=== PATIENT | female | born 1960 | race African-American/Black ===

== ENCOUNTER 2021-11-30 17:22 | Emergency (ER) | payer MEDICAID, MEDICARE ==
[~2021-11-30] VITALS: Ht 162.6 cm; Wt 79.0 kg
[2021-11-30] MEDS ORDERED: HYDR1CRE30 TOP (17:55)
[2021-11-30] MEDS ORDERED: ONDA-83 PO (17:55)
[2021-11-30] MEDS ORDERED: METO10TA2 PO (17:55)
[2021-11-30] MEDS ORDERED: VITA500045 PO (17:55)
[2021-11-30] MEDS ORDERED: DOCU100C16 PO (17:55)
[2021-11-30] MEDS ORDERED: METF500T13 PO (17:55)
[2021-11-30] MEDS ORDERED: FLUO5OI TOP (17:55)
[2021-11-30] MEDS ORDERED: CVS500CA5 PO (17:55)
[2021-11-30] MEDS ORDERED: CETI10CH PO (17:55)
[2021-11-30] MEDS ORDERED: DULO1CAP6 PO (17:55)
[2021-11-30] MEDS ORDERED: FAMO20TA PO (17:55)
[2021-11-30] MEDS ORDERED: PANT-23 PO (17:56)
[2021-11-30] MEDS ORDERED: GABA-283 PO (17:56)
[2021-11-30] MEDS ORDERED: ATOR1TAB21 PO (17:58)
[2021-11-30] MEDS ORDERED: LOSA50TA28 PO (17:58)
[2021-11-30 19:45] LABS: APPEARANCE, URINE HAZY (CLEAR); BACTERIA, URINE AUTO 1+ (NEGATIVE); BILIRUBIN, URINE AUTO NEGATIVE (NEGATIVE); BLOOD, URINE BLOOD 3+ (NEGATIVE); COLOR, URINE YELLOW (YELLOW); GLUCOSE, URINE (UA) AUTO 3+ mg/dL (NEGATIVE); KETONE, URINE AUTO NEGATIVE (NEGATIVE); LEUKOCYTE ESTERASE, URINE AUTO 3+ (NEGATIVE); MUCUS, URINE SMALL (NEGATIVE); NITRITE, URINE AUTO NEGATIVE (NEGATIVE); PROTEIN, URINE AUTO 1+ mg/dL (NEGATIVE); RBC, URINE AUTO 6 /HPF (0-3); SPECIFIC GRAVITY URINE AUTO 1.005 (1.002-1.035); SQUAMOUS EPITHELIAL CELL UR AU 4 /HPF (0-6); UROBILINOGEN, URINE AUTO 0.2 mg/dL (0.0-2.0); WBC, URINE AUTO TNTC /HPF (0-3)
[2021-11-30 19:55] LABS: BASO % 0.3 % (0.0-1.0); EOS # 0.2 10^3/uL (0.0-0.5); EOS % 1.7 % (0.0-3.0); HEMATOCRIT 41.5 % (36.0-47.0); HEMOGLOBIN 13.8 g/dl (12.0-15.5); LYMPH # 2.8 10^3/uL (1.5-5.0); LYMPH % 21.6 % (24.0-44.0); MEAN CORPUSCULAR HEMOGLOBIN 30.3 pg (27.0-33.0); MEAN CORPUSCULAR HGB CONC 33.3 g/dl (32.0-36.5); MEAN CORPUSCULAR VOLUME 91.2 fl (80.0-96.0); MONO # 0.9 10^3/uL (0.0-0.8); MONO % 6.9 % (2.0-8.0); NEUTROPHILS # 9.1 10^3/uL (1.5-8.5); NEUTROPHILS % 69.1 % (36.0-66.0); PLATELET COUNT, AUTOMATED 309 10^3/uL (150-450); RED BLOOD COUNT 4.55 10^6/uL (4.00-5.40); WHITE BLOOD COUNT 13.1 10^3/uL (4.0-10.0)
[2021-11-30 20:44] LABS: ALT/SGPT 60 U/L (12-78); BILIRUBIN,DIRECT < 0.1 MG/DL (0.0-0.2); BILIRUBIN,TOTAL 0.3 MG/DL (0.2-1.0); BLOOD UREA NITROGEN 13 MG/DL (7-18); CALCIUM LEVEL 10.5 MG/DL (8.5-10.1); CARBON DIOXIDE LEVEL 30 MEQ/L (21-32); CHLORIDE LEVEL 104 MEQ/L (98-107); CREATININE FOR GFR 1.08 MG/DL (0.55-1.30); GLOMERULAR FILTRATION RATE > 60.0 (>51); GLUCOSE, FASTING 116 MG/DL (70-100); LIPASE 368 U/L (73-393); POTASSIUM SERUM 4.4 MEQ/L (3.5-5.1); SODIUM LEVEL 140 MEQ/L (136-145); TOTAL PROTEIN 7.9 GM/DL (6.4-8.2)
[2021-11-30] MEDS ORDERED: CEPH500C PO (20:46)
[2021-11-30] MEDS ORDERED: CEPHALEXIN 500 MG CAP PO ONE (20:50)
[2021-11-30 20:56] VITALS: BP 132/67
== END 2021-11-30 21:03 | disposition home or self-care (01) ==
LOC: M ED 17:22
DX: N30.00 Acute cystitis without hematuria (principal); E11.9 Type 2 diabetes mellitus without complications; I12.9 Hypertensive chronic kidney disease with stage 1 through stage 4 chronic kidney disease, or unspecified chronic kidney disease; E78.5 Hyperlipidemia, unspecified; G89.29 Other chronic pain; M54.50 Low back pain, unspecified; K31.84 Gastroparesis; Z91.041 Radiographic dye allergy status; Z79.899 Other long term (current) drug therapy; Z79.84 Long term (current) use of oral hypoglycemic drugs

== ENCOUNTER → 2022-02-02 | Outpatient (CLI) | payer MEDICARE ==
[~2022-02-02] MED LIST: ALEV220T22 PO; ATOR1TAB21 PO; CEPH500C PO; CETI10CH PO; CVS500CA5 PO; DOCU100C16 PO; DULO1CAP6 PO; FAMO20TA PO; FLUO-215 TOP; GABA-282 PO; GABA-283 PO; HUMU70IN SC; HYDR1CRE30 TOP; JARD1TAB PO; LANTINJ4 SC; LOSA50TA28 PO; MAGN400T33 PO; METF500T13 PO; METO10TA2 PO; MICO45CR VA; MIRA3350 PO; ONDA-83 PO; PANT-23 PO; TRUL0.5I SC; VITA500045 PO
== END ==
LOC: M LABSMTC 11:17
PROVIDERS: ATTEND Anesthesiology
DX: Z01.812 Encounter for preprocedural laboratory examination (principal)

== ENCOUNTER → 2022-02-04 | Outpatient (CLI) | payer MEDICARE | LOC: M RAD 11:28 | PROVIDERS: ATTEND Family Medicine Addiction Medicine | DX: M54.59 Other low back pain (principal) ==

== ENCOUNTER 2022-02-07 06:52 | Day surgery (SDC) | payer MEDICARE ==
[~2022-02-07] VITALS: Ht 162.6 cm; Wt 78.0 kg
[~2022-02-07 06:52] MED LIST changes: +NS 1,000 ML IV ONE
[2022-02-07] MEDS ORDERED: LIDOCAINE 2% 100MG/5ML SDV (FOR ANES.) As Ordered ONE (07:11)
[2022-02-07] MEDS ORDERED: propofoL 200 MG/20 ML VIAL As Ordered ONE ×2 (07:11→09:08)
[2022-02-07] MEDS ORDERED: fentaNYL 100 MCG/2 ML INJECTION As Ordered ONE (07:12)
[2022-02-07 09:19] VITALS: BP 132/74
== END 2022-02-07 09:32 | disposition home or self-care (01) ==
LOC: M OPP 06:52
PROVIDERS: ATTEND Internal Medicine Gastroenterology
DX: Z86.010 Personal history of colon polyps (principal); K63.5 Polyp of colon; K64.8 Other hemorrhoids; K31.84 Gastroparesis; R12 Heartburn; Z79.1 Long term (current) use of non-steroidal anti-inflammatories (NSAID); Z79.02 Long term (current) use of antithrombotics/antiplatelets; Z79.84 Long term (current) use of oral hypoglycemic drugs; Z79.891 Long term (current) use of opiate analgesic; Z79.899 Other long term (current) drug therapy; Z88.1 Allergy status to other antibiotic agents; Z91.041 Radiographic dye allergy status; Z91.048 Other nonmedicinal substance allergy status; Z80.1 Family history of malignant neoplasm of trachea, bronchus and lung; Z80.3 Family history of malignant neoplasm of breast
CPT/HCPCS: 43235; 45385; 88305; J3010

== ENCOUNTER → 2022-03-04 | Outpatient (CLI) | payer MEDICARE, MEDICAID ==
[~2022-03-04] MED LIST changes: -NS 1,000 ML IV ONE
[2022-03-04 16:29] LABS: ALBUMIN 3.5 GM/DL (3.2-5.2); BILIRUBIN,TOTAL 0.4 MG/DL (0.2-1.0); CALCIUM LEVEL 9.8 MG/DL (8.5-10.1); CREATININE FOR GFR 1.19 MG/DL (0.55-1.30); GLOMERULAR FILTRATION RATE 59.9 (>51); POTASSIUM SERUM 4.3 MEQ/L (3.5-5.1); TOTAL PROTEIN 7.2 GM/DL (6.4-8.2)
[2022-03-04 16:29] LABS: BASO % 0.4 % (0.0-1.0); EOS # 0.3 10^3/uL (0.0-0.5); EOS % 3.6 % (0.0-3.0); HEMATOCRIT 42.2 % (36.0-47.0); HEMOGLOBIN 13.5 g/dl (12.0-15.5); LYMPH # 3.2 10^3/uL (1.5-5.0); LYMPH % 36.1 % (24.0-44.0); MEAN CORPUSCULAR HEMOGLOBIN 29.2 pg (27.0-33.0); MEAN CORPUSCULAR VOLUME 91.3 fl (80.0-96.0); MONO # 0.9 10^3/uL (0.0-0.8); MONO % 10.2 % (2.0-8.0); NEUTROPHILS # 4.4 10^3/uL (1.5-8.5); NEUTROPHILS % 49.3 % (36.0-66.0); PLATELET COUNT, AUTOMATED 334 10^3/uL (150-450); RED BLOOD COUNT 4.62 10^6/uL (4.00-5.40); WHITE BLOOD COUNT 8.9 10^3/uL (4.0-10.0)
== END ==
LOC: M LAB 15:06
PROVIDERS: ATTEND Physician Assistant Medical
DX: R10.10 Upper abdominal pain, unspecified (principal)

== ENCOUNTER → 2022-03-15 | Outpatient (CLI) | payer MEDICARE, MEDICAID | LOC: M PLAIMG 13:01 | PROVIDERS: ATTEND Family Medicine Addiction Medicine | DX: M54.50 Low back pain, unspecified (principal) ==

== ENCOUNTER → 2022-03-18 | Outpatient (CLI) | payer MEDICARE, MEDICAID | LOC: M RAD 07:06 | PROVIDERS: ATTEND Physician Assistant Medical | DX: K76.0 Fatty (change of) liver, not elsewhere classified (principal); K80.20 Calculus of gallbladder without cholecystitis without obstruction; R68.81 Early satiety ==

== ENCOUNTER 2022-04-26 12:30 | Outpatient (RCR) | payer MEDICARE, MEDICAID | END 2022-04-27 | LOC: M PT 12:30 | PROVIDERS: ATTEND Family Medicine Addiction Medicine | DX: M53.3 Sacrococcygeal disorders, not elsewhere classified (principal) ==

== ENCOUNTER → 2022-05-10 | Outpatient (CLI) | payer MEDICARE, MEDICAID | LOC: M SOG 09:09 | PROVIDERS: ATTEND Physician Assistant | DX: M25.531 Pain in right wrist (principal); M25.532 Pain in left wrist ==

== ENCOUNTER → 2022-05-20 | Outpatient (CLI) | payer MEDICARE, MEDICAID ==
[2022-05-20 12:47] LABS: ALBUMIN 3.7 GM/DL (3.2-5.2); ALT/SGPT 56 U/L (12-78); BILIRUBIN,DIRECT < 0.1 MG/DL (0.0-0.2); BILIRUBIN,TOTAL 0.3 MG/DL (0.2-1.0); TOTAL PROTEIN 7.8 GM/DL (6.4-8.2)
== END ==
LOC: M LAB 11:11
PROVIDERS: ATTEND Physician Assistant Medical
DX: R74.01 Elevation of levels of liver transaminase levels (principal)

== ENCOUNTER → 2022-05-24 | Outpatient (CLI) | payer MEDICARE, MEDICAID ==
[~2022-05-24] MED LIST changes: +ACET-907 PO; +BENA25TA5 PO; +DULO30CA9 PO; +ERGO500029 PO; +HYDR25OI TOP; +JARD1TAB3 PO; +TURM500C PO
== END ==
LOC: M EKG 08:40
PROVIDERS: ATTEND Family Medicine Addiction Medicine
DX: Z01.810 Encounter for preprocedural cardiovascular examination (principal)

== ENCOUNTER → 2022-05-25 | Outpatient (CLI) | payer MEDICARE, MEDICAID ==
[~2022-05-25] MED LIST changes: -ACET-907 PO; -BENA25TA5 PO; -DULO30CA9 PO; -ERGO500029 PO; -HYDR25OI TOP; -JARD1TAB3 PO; -TURM500C PO
== END ==
LOC: M LABSMTC 09:10
PROVIDERS: ATTEND Anesthesiology
DX: Z01.818 Encounter for other preprocedural examination (principal); Z11.52 Encounter for screening for COVID-19

== ENCOUNTER 2022-05-26 11:15 | Outpatient (RCR) | payer MEDICARE, MEDICAID ==
[2022-05-27] MEDS ORDERED: JARD1TAB3 PO (08:55)
[2022-05-27] MEDS ORDERED: ERGO500029 PO (10:12)
[2022-05-27] MEDS ORDERED: TURM500C PO (10:12)
[2022-05-27] MEDS ORDERED: DULO30CA9 PO (10:12)
[2022-05-27] MEDS ORDERED: HYDR25OI TOP (10:12)
[2022-05-27] MEDS ORDERED: BENA25TA5 PO (10:12)
[2022-05-27] MEDS ORDERED: ACET-907 PO (10:12)
[2022-05-27] MEDS ORDERED: DULO1CAP6 PO (10:12)
== END 2022-05-27 ==
LOC: M PT 11:15
PROVIDERS: ATTEND Family Medicine Addiction Medicine
DX: M53.3 Sacrococcygeal disorders, not elsewhere classified (principal)

== ENCOUNTER 2022-05-30 06:06 | Day surgery (SDC) | payer MEDICARE, MEDICAID ==
[~2022-05-30] VITALS: Ht 162.6 cm; Wt 78.8 kg
[~2022-05-30 06:06] MED LIST changes: +ACET-907 PO; +BENA25TA5 PO; +DULO30CA9 PO; +ERGO500029 PO; +HYDR25OI TOP; +JARD1TAB3 PO; +TURM500C PO
[2022-05-30] MEDS ORDERED: LR 1,000 ML IV SCH ×2 (06:35→08:25)
[2022-05-30] MEDS ORDERED: BUPIVACAINE HCL 0.25% 30ML VIAL As Ordered ONE (07:15)
[2022-05-30] MEDS ORDERED: LIDOCAINE 2% 100MG/5ML SDV (FOR ANES.) As Ordered ONE (07:20)
[2022-05-30] MEDS ORDERED: fentaNYL 100 MCG/2 ML INJECTION As Ordered ONE (07:20)
[2022-05-30] MEDS ORDERED: propofoL 200 MG/20 ML VIAL As Ordered ONE (07:20)
[2022-05-30] MEDS ORDERED: MIDAZOLAM INJ 2MG/2ML VIAL (J2250 PER 1MG) As Ordered ONE (07:20)
[2022-05-30] MEDS ORDERED: KETOROLAC 60MG 2ML VIAL As Ordered ONE (07:55)
[2022-05-30] MEDS ORDERED: dexameTHASONE 4 MG/ML 1ML VIAL (J1100 PER 1MG) As Ordered ONE (07:55)
[2022-05-30] MEDS ORDERED: METOCLOPRAMIDE INJ 10MG/2ML VIAL (J2765 PER 1) As Ordered ONE (07:55)
[2022-05-30] MEDS ORDERED: ONDANSETRON 4MG 2ML VIAL As Ordered ONE (07:55)
[2022-05-30] MEDS ORDERED: fentaNYL 100 MCG/2 ML INJECTION IV PRN (08:25)
[2022-05-30] MEDS ORDERED: oxyCODONE 5MG TAB PO PRN (08:25)
[2022-05-30] MEDS ORDERED: ONDANSETRON 4MG 2ML VIAL IV PRN (08:25)
[2022-05-30 09:28] VITALS: BP 145/76
== END 2022-05-30 10:01 | disposition home or self-care (01) ==
LOC: M SDC 06:06
PROVIDERS: ATTEND Orthopaedic Surgery Hand Surgery
DX: G56.02 Carpal tunnel syndrome, left upper limb (principal); Z91.041 Radiographic dye allergy status; Z91.048 Other nonmedicinal substance allergy status; Z88.1 Allergy status to other antibiotic agents
CPT/HCPCS: 29848; J1100; J1885; J2250; J2405; J2765; J3010

== ENCOUNTER → 2022-07-04 | Outpatient (CLI) | payer MEDICARE, MEDICAID ==
[~2022-07-04] MED LIST changes: +CLOT1CRE71; +ESTR0.1C5
== END ==
LOC: M LABSMTC 11:38
PROVIDERS: ATTEND Anesthesiology
DX: Z01.812 Encounter for preprocedural laboratory examination (principal)

== ENCOUNTER → 2022-07-06 | Outpatient (REF) | payer MEDICARE, MEDICAID ==
[2022-07-06 17:46] LABS: ALBUMIN 3.6 GM/DL (3.2-5.2); ALT/SGPT 62 U/L (12-78); BILIRUBIN,TOTAL 0.3 MG/DL (0.2-1.0); BLOOD UREA NITROGEN 18 MG/DL (7-18); CARBON DIOXIDE LEVEL 26 MEQ/L (21-32); CHLORIDE LEVEL 105 MEQ/L (98-107); CHOLESTEROL LEVEL 180 MG/DL (<200); CHOLESTEROL RISK RATIO 3.214 (<5); CREATININE FOR GFR 1.07 MG/DL (0.55-1.30); GLOMERULAR FILTRATION RATE > 60.0 (>51); GLUCOSE, FASTING 137 MG/DL (70-100); HDL CHOLESTEROL 56 MG/DL (>40); LDL CHOLESTEROL 93 MG/DL (<100); NON-HDL-C 124 MG/DL; POTASSIUM SERUM 4.8 MEQ/L (3.5-5.1); SODIUM LEVEL 136 MEQ/L (136-145); THYROID STIMULATING HORMONE 0.996 uIU/ML (0.358-3.740); TOTAL PROTEIN 7.4 GM/DL (6.4-8.2); TRIGLYCERIDES LEVEL 155 MG/DL (<150)
[2022-07-06 21:15] LABS: HEMOGLOBIN A1c 9.7 %
== END ==
LOC: M LAB REF 16:27
PROVIDERS: ATTEND Family Medicine Addiction Medicine
DX: E11.69 Type 2 diabetes mellitus with other specified complication (principal)

== ENCOUNTER 2022-07-08 13:04 | Day surgery (SDC) | payer MEDICARE, MEDICAID ==
[~2022-07-08] VITALS: Ht 162.6 cm; Wt 76.2 kg
[~2022-07-08 13:04] MED LIST changes: +AMPICILLIN SOD/SULBACTAM SOD 3 GM in D5W MINI-BAG PLUS 100 ML IV ONE; +CelecoXIB 400 MG CAP PO ONE; +INDOCYANINE GREEN 25MG VIAL (IC-GREEN) IV ONE
[2022-07-08] MEDS ORDERED: LR 1,000 ML IV SCH ×2 (13:55→17:30)
[2022-07-08] MEDS ORDERED: fentaNYL 100 MCG/2 ML INJECTION As Ordered ONE (14:25)
[2022-07-08] MEDS ORDERED: SUGAMMADEX SODIUM 500 MG/5 ML VIAL (BRIDION) As Ordered ONE (14:26)
[2022-07-08] MEDS ORDERED: MIDAZOLAM INJ 2MG/2ML VIAL (J2250 PER 1MG) As Ordered ONE (14:26)
[2022-07-08] MEDS ORDERED: LIDOCAINE 2% 100MG/5ML SDV (FOR ANES.) As Ordered ONE (14:26)
[2022-07-08] MEDS ORDERED: propofoL 200 MG/20 ML VIAL As Ordered ONE (14:26)
[2022-07-08] MEDS ORDERED: ROCURONIUM BROMIDE 50 MG/5 ML VIAL As Ordered ONE (14:26)
[2022-07-08] MEDS ORDERED: ONDANSETRON 4MG 2ML VIAL As Ordered ONE (14:26)
[2022-07-08] MEDS ORDERED: INDOCYANINE GREEN 25MG VIAL (IC-GREEN) As Ordered ONE (14:58)
[2022-07-08] MEDS ORDERED: BUPIVACAINE HCL 0.25% 30ML VIAL As Ordered ONE (14:58)
[2022-07-08] MEDS ORDERED: LIDOCAINE 1% SDV 30ML VIAL As Ordered ONE (14:58)
[2022-07-08] MEDS ORDERED: KETAMINE HCL 200 MG/20 ML VIAL As Ordered ONE (17:14)
[2022-07-08] MEDS ORDERED: ACETAMINOPHEN 1000MG 100ML IV BAG As Ordered ONE (17:15)
[2022-07-08] MEDS ORDERED: MORPHINE 2 MG/ML 1ML VIAL IV PRN (17:30)
[2022-07-08] MEDS ORDERED: ONDANSETRON 4MG 2ML VIAL IV PRN (17:30)
[2022-07-08] MEDS: oxyCODONE 5MG TAB PO PRN ×2 (17:53→18:26)
[2022-07-08] MEDS: fentaNYL 100 MCG/2 ML INJECTION IV PRN ×3 (17:53→18:26)
[2022-07-08] MEDS ORDERED: ACETAMINOPHEN TAB 650MG DOSE (2X325MG) PO PRN (18:05)
[2022-07-08] MEDS ORDERED: NORCO, ANEXSIA 5/325MG TABLET (HYDROcodone/ACETAMINOPHEN) PO PRN ×2 (18:05)
[2022-07-08 20:00] VITALS: BP 165/77
== END 2022-07-08 20:08 | disposition home or self-care (01) ==
LOC: M SDC 13:04
PROVIDERS: ATTEND Surgery
DX: K80.10 Calculus of gallbladder with chronic cholecystitis without obstruction (principal); I12.9 Hypertensive chronic kidney disease with stage 1 through stage 4 chronic kidney disease, or unspecified chronic kidney disease; E78.5 Hyperlipidemia, unspecified; R00.2 Palpitations; E11.22 Type 2 diabetes mellitus with diabetic chronic kidney disease; K76.0 Fatty (change of) liver, not elsewhere classified; K21.9 Gastro-esophageal reflux disease without esophagitis; J44.9 Chronic obstructive pulmonary disease, unspecified; N18.2 Chronic kidney disease, stage 2 (mild); F41.9 Anxiety disorder, unspecified; F32.A Depression, unspecified; R51.9 Headache, unspecified; Z79.899 Other long term (current) drug therapy; Z79.84 Long term (current) use of oral hypoglycemic drugs; Z79.4 Long term (current) use of insulin; Z79.890 Hormone replacement therapy; Z91.041 Radiographic dye allergy status; Z88.1 Allergy status to other antibiotic agents; Z91.048 Other nonmedicinal substance allergy status
CPT/HCPCS: 47563; 64488; 88304; J0131; J0295; J2250; J2405; J3010; Q9968; S2900

== ENCOUNTER → 2022-09-01 | Outpatient (CLI) | payer MEDICARE, MEDICAID ==
[~2022-09-01] MED LIST changes: -AMPICILLIN SOD/SULBACTAM SOD 3 GM in D5W MINI-BAG PLUS 100 ML IV ONE; -CelecoXIB 400 MG CAP PO ONE; -INDOCYANINE GREEN 25MG VIAL (IC-GREEN) IV ONE
[2022-09-01 09:56] LABS: HEMATOCRIT 41.6 % (36.0-47.0); HEMOGLOBIN 13.1 g/dl (12.0-15.5); MEAN CORPUSCULAR HEMOGLOBIN 29.4 pg (27.0-33.0); MEAN CORPUSCULAR HGB CONC 31.5 g/dl (32.0-36.5); MEAN CORPUSCULAR VOLUME 93.3 fl (80.0-96.0); PLATELET COUNT, AUTOMATED 431 10^3/uL (150-450); RED BLOOD COUNT 4.46 10^6/uL (4.00-5.40); WHITE BLOOD COUNT 7.5 10^3/uL (4.0-10.0)
[2022-09-01 10:19] LABS: LIPASE 69 U/L (12-53)
[2022-09-01 10:20] LABS: MAGNESIUM LEVEL 1.5 MG/DL (1.8-2.4)
[2022-09-01 10:21] LABS: ALBUMIN 3.7 G/DL (3.2-5.2); ALKALINE PHOSPHATASE 101 U/L (46-116); ALT/SGPT 55 U/L (7.0-40); AMYLASE 124 U/L (30-118); AST/SGOT 31 U/L (<34); BILIRUBIN,TOTAL 0.2 MG/DL (0.3-1.2); BLOOD UREA NITROGEN 15 MG/DL (9-23); CALCIUM LEVEL 9.7 MG/DL (8.5-10.1); CARBON DIOXIDE LEVEL 26 MMOL/L (20-31); CHLORIDE LEVEL 106 MMOL/L (98-107); CREATININE FOR GFR 0.92 MG/DL (0.55-1.30); GLOMERULAR FILTRATION RATE > 60.0 (>51); GLUCOSE, FASTING 170 MG/DL (60-100); POTASSIUM SERUM 4.5 MMOL/L (3.5-5.1); SODIUM LEVEL 142 MMOL/L (136-145)
== END ==
LOC: M LAB 09:24
PROVIDERS: ATTEND Physician Assistant Medical
DX: R10.9 Unspecified abdominal pain (principal)

== ENCOUNTER → 2022-09-15 | Outpatient (CLI) | payer MEDICARE, MEDICAID ==
[2022-09-15 12:16] LABS: LIPASE 55 U/L (12-53)
[2022-09-15 12:17] LABS: MAGNESIUM LEVEL 1.7 MG/DL (1.8-2.4)
[2022-09-15 12:18] LABS: AMYLASE 120 U/L (30-118)
[2022-09-15 12:19] LABS: ALBUMIN 3.8 G/DL (3.2-5.2); ALKALINE PHOSPHATASE 113 U/L (46-116); ALT/SGPT 60 U/L (7.0-40); AST/SGOT 46 U/L (<34); BILIRUBIN,DIRECT < 0.1 MG/DL (<0.4); BILIRUBIN,TOTAL 0.4 MG/DL (0.3-1.2); TOTAL PROTEIN 7.4 G/DL (5.7-8.2)
== END ==
LOC: M LAB 11:06
PROVIDERS: ATTEND Physician Assistant Medical
DX: R10.10 Upper abdominal pain, unspecified (principal); E83.42 Hypomagnesemia; R74.8 Abnormal levels of other serum enzymes; R74.01 Elevation of levels of liver transaminase levels

== ENCOUNTER → 2022-10-06 | Outpatient (CLI) | payer MEDICARE, MEDICAID ==
[2022-10-06 13:02] LABS: LIPASE 42 U/L (12-53)
[2022-10-06 13:04] LABS: AMYLASE 102 U/L (30-118)
[2022-10-06 13:08] LABS: ALBUMIN 3.8 G/DL (3.2-5.2); ALKALINE PHOSPHATASE 114 U/L (46-116); ALT/SGPT 66 U/L (7.0-40); AST/SGOT 39 U/L (<34); BILIRUBIN,DIRECT < 0.1 MG/DL (<0.4); BILIRUBIN,TOTAL 0.3 MG/DL (0.3-1.2); MAGNESIUM LEVEL 1.7 MG/DL (1.8-2.4)
== END ==
LOC: M LAB 11:49
PROVIDERS: ATTEND Physician Assistant Medical
DX: E83.42 Hypomagnesemia (principal); R10.10 Upper abdominal pain, unspecified; R74.8 Abnormal levels of other serum enzymes; R74.01 Elevation of levels of liver transaminase levels

== ENCOUNTER → 2022-10-11 | Outpatient (CLI) | payer MEDICARE, MEDICAID | LOC: M RAD 06:36 | PROVIDERS: ATTEND Physician Assistant Medical | DX: R10.10 Upper abdominal pain, unspecified (principal); R74.8 Abnormal levels of other serum enzymes; R74.01 Elevation of levels of liver transaminase levels ==

== ENCOUNTER 2022-10-14 13:42 | Outpatient (RCR) | payer MEDICARE, MEDICAID ==
[~2022-10-14 13:42] MED LIST changes: -FLUO-215 TOP; +FLUO5OI TOP
== END 2022-10-25 ==
LOC: M OT 13:42
PROVIDERS: ATTEND Orthopaedic Surgery Hand Surgery
DX: G56.02 Carpal tunnel syndrome, left upper limb (principal)

== ENCOUNTER → 2022-10-21 | Outpatient (REF) | payer MEDICARE, MEDICAID, OTHER ==
[2022-10-21 16:40] LABS: LIPASE 40 U/L (12-53)
[2022-10-21 16:41] LABS: AMYLASE 96 U/L (30-118)
[2022-10-21 16:42] LABS: ALBUMIN 3.7 G/DL (3.2-5.2); ALKALINE PHOSPHATASE 119 U/L (46-116); ALT/SGPT 41 U/L (7.0-40); AST/SGOT 30 U/L (<34); BILIRUBIN,TOTAL 0.3 MG/DL (0.3-1.2); BLOOD UREA NITROGEN 12 MG/DL (9-23); CARBON DIOXIDE LEVEL 32 MMOL/L (20-31); CHLORIDE LEVEL 103 MMOL/L (98-107); CREATININE FOR GFR 0.76 MG/DL (0.55-1.30); GLOMERULAR FILTRATION RATE > 60.0 (>51); GLUCOSE, FASTING 99 MG/DL (60-100); MAGNESIUM LEVEL 1.4 MG/DL (1.8-2.4); POTASSIUM SERUM 4.1 MMOL/L (3.5-5.1); SODIUM LEVEL 141 MMOL/L (136-145); TOTAL PROTEIN 7.1 G/DL (5.7-8.2)
== END ==
LOC: M LAB REF 16:03
PROVIDERS: ATTEND Family Medicine Addiction Medicine
DX: K85.90 Acute pancreatitis without necrosis or infection, unspecified (principal); E83.42 Hypomagnesemia

== ENCOUNTER 2022-11-11 09:05 | Outpatient (RCR) | payer MEDICARE, MEDICAID ==
[2022-11-19] MEDS ORDERED: DIVA250T67 PO ×2 (23:20)
[2022-11-19] MEDS ORDERED: FAMO40TA3 PO (23:20)
[2022-11-19] MEDS ORDERED: VITA500C3 PO (23:22)
[2022-11-19] MEDS ORDERED: METF-838 PO (23:22)
[2022-11-21] MEDS ORDERED: IBUP80TA PO (10:19)
[2022-11-21] MEDS ORDERED: ACET-683 PO (10:19)
[2022-11-21] MEDS ORDERED: AMLO1TAB25 PO (10:19)
[2022-11-21] MEDS ORDERED: ASPI81CH8 PO (10:19)
[2022-11-21] MEDS ORDERED: ZONI50CA PO (10:19)
== END 2022-11-25 ==
LOC: M OT 09:05
PROVIDERS: ATTEND Orthopaedic Surgery Hand Surgery
DX: G56.02 Carpal tunnel syndrome, left upper limb (principal)

== ENCOUNTER → 2022-11-11 | Outpatient (CLI) | payer MEDICARE, MEDICAID ==
[2022-11-11 11:30] LABS: HEMOGLOBIN A1c 7.6 % (4.0-6.0)
== END ==
LOC: M LAB 09:59
PROVIDERS: ATTEND Psychiatry & Neurology Neurology
DX: E11.9 Type 2 diabetes mellitus without complications (principal)

== ENCOUNTER 2022-11-19 20:31 | Observation (INO) | payer MEDICARE, MEDICAID ==
[~2022-11-19] VITALS: Ht 162.6 cm; Wt 84.8 kg
[2022-11-19 21:18] LABS: HEMATOCRIT 40.8 % (36.0-47.0); HEMOGLOBIN 13.3 g/dl (12.0-15.5); MEAN CORPUSCULAR HGB CONC 32.6 g/dl (32.0-36.5); MEAN CORPUSCULAR VOLUME 92.1 fl (80.0-96.0); RED BLOOD COUNT 4.43 10^6/uL (4.00-5.40); WHITE BLOOD COUNT 9.4 10^3/uL (4.0-10.0)
[2022-11-19 21:19] LABS: BASO % 0.4 % (0.0-1.0); EOS # 0.1 10^3/uL (0.0-0.5); EOS % 1.3 % (0.0-3.0); LYMPH # 1.6 10^3/uL (1.5-5.0); LYMPH % 16.9 % (24.0-44.0); MONO # 0.7 10^3/uL (0.0-0.8); MONO % 7.5 % (2.0-8.0); NEUTROPHILS # 6.9 10^3/uL (1.5-8.5); NEUTROPHILS % 73.6 % (36.0-66.0); PLATELET COUNT, AUTOMATED 396 10^3/uL (150-450)
[2022-11-19 21:29] LABS: INR 0.92; PROTHROMBIN TIME 12.6 SECONDS (12.5-14.5)
[2022-11-19 21:30] LABS: PARTIAL THROMBOPLASTIN TIME 26.8 SECONDS (24.8-34.2)
[2022-11-19 21:40] LABS: CK-MB VALUE MASS 4.4 NG/ML (<3.6)
[2022-11-19] MEDS ORDERED: MORPHINE 4 MG/ML 1ML VIAL IV ONE (21:40)
[2022-11-19 21:43] LABS: ALBUMIN 3.9 G/DL (3.2-5.2); ALKALINE PHOSPHATASE 90 U/L (46-116); ALT/SGPT 36 U/L (7.0-40); AST/SGOT 43 U/L (<34); BILIRUBIN,DIRECT < 0.1 MG/DL (<0.4); BILIRUBIN,TOTAL 0.3 MG/DL (0.3-1.2); BLOOD UREA NITROGEN 10 MG/DL (9-23); CALCIUM LEVEL 9.3 MG/DL (8.5-10.1); CARBON DIOXIDE LEVEL 21 MMOL/L (20-31); CHLORIDE LEVEL 103 MMOL/L (98-107); GLOMERULAR FILTRATION RATE > 60.0 (>51); GLUCOSE, FASTING 116 MG/DL (60-100); POTASSIUM SERUM 4.9 MMOL/L (3.5-5.1); SODIUM LEVEL 136 MMOL/L (136-145); TOTAL PROTEIN 7.1 G/DL (5.7-8.2)
[2022-11-19 21:44] LABS: THYROID STIMULATING HORMONE 0.975 uIU/ML (0.55-4.78)
[2022-11-19 21:47] LABS: CPK CREATINE PHOSPHOKINASE 499 U/L (34-145); MB/CK RELATIVE INDEX 0.88 (< OR =4)
[2022-11-19] MEDS ORDERED: ASPIRIN 325 MG TAB PO ONE (22:30)
[2022-11-19] MEDS ORDERED: GLUCOSE 4GM CHEW TABLET PO PRN (22:40)
[2022-11-19] MEDS ORDERED: NS 500 ML IV ONE (22:40)
[2022-11-19] MEDS ORDERED: GLUCAGON INJ 1MG VIAL SC PRN (22:40)
[2022-11-19] MEDS ORDERED: DEXTROSE 50% 50ML SYRINGE IV PRN (22:40)
[2022-11-19] MEDS ORDERED: DIVA250T67 PO ×2 (23:20)
[2022-11-19] MEDS ORDERED: FAMO40TA3 PO (23:20)
[2022-11-19] MEDS ORDERED: VITA500C3 PO (23:22)
[2022-11-19] MEDS ORDERED: METF-838 PO (23:22)
[2022-11-19] MEDS ORDERED: HOME MED LIST COMPLETE! XX SCH (23:25)
[2022-11-20 00:15] LABS: RSV AMPLIFICATION NEGATIVE (NEGATIVE)
[2022-11-20] MEDS: INSULIN LISPRO (NovoLOG) PER UNIT SC SCH ×4 (00:54→17:22)
[2022-11-20] MEDS: LEVEMIR (INSULIN DETEMIR) 1 UNITS/0.01ML SC SCH ×3 (00:55→20:42)
[2022-11-20] MEDS ORDERED: ACETAMINOPHEN 325 MG TAB PO ONE (01:00)
[2022-11-20] MEDS: HEPARIN SOD (PORCINE) 5000UNITS/ML 1ML VIAL/SYRINGE SQ SCH ×3 (06:45→20:43)
[2022-11-20 07:56] LABS: CHOLESTEROL RISK RATIO 2.53 (<5); HDL CHOLESTEROL 48.9 MG/DL (>40); LDL CHOLESTEROL 57.5 MG/DL (<100); NON-HDL-C 75.1 MG/DL
[2022-11-20 08:17] LABS: HEMOGLOBIN A1c 7.3 % (4.0-6.0)
[2022-11-20] MEDS ORDERED: ASPIRIN 81MG CHEW TABLET PO SCH (09:00)
[2022-11-20] MEDS: PANTOPRAZOLE 40MG TAB (PROTONIX) PO SCH (09:57)
[2022-11-20] MEDS: DULoxetine 30MG CAPSULE (CYMBALTA) PO SCH (09:57)
[2022-11-20] MEDS: ATORVASTATIN 20 MG TAB PO SCH (09:57)
[2022-11-20] MEDS: FAMOTIDINE 20 MG TAB PO SCH ×2 (09:57→20:41)
[2022-11-20] MEDS: LOSARTAN 50MG TABLET PO SCH (09:58)
[2022-11-20 11:41] VITALS: BP 143/72
[2022-11-20 12:05] VITALS: BP 143/72; PULSE 94
[2022-11-20] MEDS: ACETAMINOPHEN 500 MG TAB PO SCH ×2 (13:41→20:41)
[2022-11-20] MEDS: IBUPROFEN 800 MG TAB PO SCH ×2 (13:42→20:42)
[2022-11-20] MEDS ORDERED: FIORICET TAB PO PRN (16:15)
[2022-11-20 16:27] VITALS: BP 140/75
[2022-11-20 17:22] VITALS: BP_SYST 129; BP_SYST 144; BP_SYST 152; BP_DIAS 69; BP_DIAS 71; BP_DIAS 76
[2022-11-20 20:04] VITALS: BP 158/72
[2022-11-20] MEDS ORDERED: LOSARTAN 25 MG TAB PO SCH (21:00)
[2022-11-20] MEDS ORDERED: ACETAMINOPHEN 500 MG TAB PO SCH (21:00)
[2022-11-20] MEDS ORDERED: DIVALPROEX 250MG TAB PO SCH (21:00)
[2022-11-20] MEDS ORDERED: ZONISAMIDE 50 MG CAP (ZONEGRAN) PO SCH (21:00)
[2022-11-20] MEDS ORDERED: INSULIN LISPRO (NovoLOG) PER UNIT SC SCH (21:00)
[2022-11-20] MEDS ORDERED: IBUPROFEN 800 MG TAB PO SCH (21:00)
[2022-11-21] VITALS: BP 142/65
[2022-11-21 04:06] VITALS: BP 129/78
[2022-11-21 06:07] LABS: BASO % 0.5 % (0.0-1.0); EOS # 0.1 10^3/uL (0.0-0.5); EOS % 1.2 % (0.0-3.0); HEMATOCRIT 43.9 % (36.0-47.0); HEMOGLOBIN 13.9 g/dl (12.0-15.5); LYMPH # 2.3 10^3/uL (1.5-5.0); LYMPH % 34.6 % (24.0-44.0); MEAN CORPUSCULAR HEMOGLOBIN 29.9 pg (27.0-33.0); MEAN CORPUSCULAR HGB CONC 31.7 g/dl (32.0-36.5); MEAN CORPUSCULAR VOLUME 94.4 fl (80.0-96.0); MONO # 0.7 10^3/uL (0.0-0.8); MONO % 10.9 % (2.0-8.0); NEUTROPHILS # 3.5 10^3/uL (1.5-8.5); NEUTROPHILS % 52.5 % (36.0-66.0); PLATELET COUNT, AUTOMATED 389 10^3/uL (150-450); RED BLOOD COUNT 4.65 10^6/uL (4.00-5.40); WHITE BLOOD COUNT 6.6 10^3/uL (4.0-10.0)
[2022-11-21] MEDS: HEPARIN SOD (PORCINE) 5000UNITS/ML 1ML VIAL/SYRINGE SQ SCH (06:19)
[2022-11-21 06:20] VITALS: BP 130/82
[2022-11-21 06:30] LABS: BLOOD UREA NITROGEN 12 MG/DL (9-23); CALCIUM LEVEL 9.2 MG/DL (8.5-10.1); CARBON DIOXIDE LEVEL 25 MMOL/L (20-31); CHLORIDE LEVEL 106 MMOL/L (98-107); CREATININE FOR GFR 0.99 MG/DL (0.55-1.30); GLOMERULAR FILTRATION RATE > 60.0 (>51); GLUCOSE, FASTING 105 MG/DL (60-100); POTASSIUM SERUM 4.5 MMOL/L (3.5-5.1); SODIUM LEVEL 139 MMOL/L (136-145)
[2022-11-21 07:54] VITALS: BP 141/77
[2022-11-21] MEDS: INSULIN LISPRO (NovoLOG) PER UNIT SC SCH ×2 (08:37→12:23)
[2022-11-21] MEDS: LEVEMIR (INSULIN DETEMIR) 1 UNITS/0.01ML SC SCH (08:38)
[2022-11-21] MEDS: IBUPROFEN 800 MG TAB PO SCH (08:39)
[2022-11-21] MEDS: FAMOTIDINE 20 MG TAB PO SCH (08:40)
[2022-11-21] MEDS: PANTOPRAZOLE 40MG TAB (PROTONIX) PO SCH (08:40)
[2022-11-21] MEDS: ACETAMINOPHEN 500 MG TAB PO SCH (08:40)
[2022-11-21] MEDS: LOSARTAN 50MG TABLET PO SCH (08:40)
[2022-11-21] MEDS: DULoxetine 30MG CAPSULE (CYMBALTA) PO SCH (08:41)
[2022-11-21] MEDS: ATORVASTATIN 20 MG TAB PO SCH (08:41)
[2022-11-21] MEDS ORDERED: ASPIRIN 81MG CHEW TABLET PO SCH (09:00)
[2022-11-21] MEDS ORDERED: ASPI81CH8 PO (10:19)
[2022-11-21] MEDS ORDERED: IBUP80TA PO (10:19)
[2022-11-21] MEDS ORDERED: ACET-683 PO (10:19)
[2022-11-21] MEDS ORDERED: AMLO1TAB25 PO (10:19)
[2022-11-21] MEDS ORDERED: ZONI50CA PO (10:19)
== END 2022-11-21 12:56 | disposition home health service (06) ==
LOC: M ED 20:31 → M ED INP 20:32 → ENRESERV 11-20 11:25 → M PCU 11-20 11:42
PROVIDERS: ADMIT Internal Medicine; ATTEND Internal Medicine
DX: I16.0 Hypertensive urgency (principal); G43.909 Migraine, unspecified, not intractable, without status migrainosus; E11.43 Type 2 diabetes mellitus with diabetic autonomic (poly)neuropathy; I10 Essential (primary) hypertension; E78.00 Pure hypercholesterolemia, unspecified; M25.559 Pain in unspecified hip; M25.569 Pain in unspecified knee; M54.50 Low back pain, unspecified; G89.29 Other chronic pain; E11.42 Type 2 diabetes mellitus with diabetic polyneuropathy; K21.9 Gastro-esophageal reflux disease without esophagitis; J44.9 Chronic obstructive pulmonary disease, unspecified; F41.9 Anxiety disorder, unspecified; F32.A Depression, unspecified; R42 Dizziness and giddiness; R47.01 Aphasia; R47.1 Dysarthria and anarthria; R26.2 Difficulty in walking, not elsewhere classified; R53.1 Weakness; R29.703 NIHSS score 3; Z91.041 Radiographic dye allergy status; Z91.048 Other nonmedicinal substance allergy status; Z88.1 Allergy status to other antibiotic agents; Z79.899 Other long term (current) drug therapy; Z79.82 Long term (current) use of aspirin; Z79.84 Long term (current) use of oral hypoglycemic drugs; Z79.4 Long term (current) use of insulin; Z79.891 Long term (current) use of opiate analgesic
CPT/HCPCS: 36415; 70450; 70544; 70551; 71045; 80047; 80048; 80061; 80076; 81001; 82550; 82553; 83036; 84443; 84484; 85025; 85610; 85730; 87631; 92610; 93005; 93041; 93880; 94760; 96361; 96372; 96374; 97116; 97161; 97165; 97530; 97535; 99285; G0378; J1815

== ENCOUNTER → 2022-11-24 | Outpatient (CLI) | payer MEDICARE, MEDICAID ==
[~2022-11-24] MED LIST changes: +ACET-683 PO; +AMLO1TAB25 PO; +ASPI81CH8 PO; +BUPIVACAINE HCL 0.5% 30ML VIAL As Ordered ONE; +DIVA250T67 PO; +FAMO40TA3 PO; +IBUP80TA PO; +ISOVUE-300 61% 100ML VIAL As Ordered ONE; +LIDOCAINE 1% MDV 20ML VIAL As Ordered ONE; +METF-838 PO; +VITA500C3 PO; +ZONI50CA PO; +methylPREDNISolone 80MG/ML SUSP 1ML VIAL As Ordered ONE
== END ==
LOC: M RAD 13:39
PROVIDERS: ATTEND Orthopaedic Surgery Adult Reconstructive Orthopaedic Surgery
DX: M16.11 Unilateral primary osteoarthritis, right hip (principal); R30.0 Dysuria
CPT/HCPCS: 20610; 77002; 87088; 87186; J1040; Q9967

== ENCOUNTER → 2022-11-25 | Outpatient (CLI) | payer MEDICARE, MEDICAID ==
[~2022-11-25] MED LIST changes: -BUPIVACAINE HCL 0.5% 30ML VIAL As Ordered ONE; -ISOVUE-300 61% 100ML VIAL As Ordered ONE; -LIDOCAINE 1% MDV 20ML VIAL As Ordered ONE; -methylPREDNISolone 80MG/ML SUSP 1ML VIAL As Ordered ONE
== END ==
LOC: M LAB 09:26
PROVIDERS: ATTEND Physician Assistant Medical
DX: E83.42 Hypomagnesemia (principal)

== ENCOUNTER → 2022-12-22 | Outpatient (REF) | payer MEDICARE, MEDICAID, OTHER | LOC: M LAB REF 12:25 | PROVIDERS: ATTEND Family Medicine Addiction Medicine | DX: R82.90 Unspecified abnormal findings in urine (principal) ==

== ENCOUNTER → 2023-01-03 | Outpatient (CLI) | payer MEDICARE, MEDICAID | LOC: M WHC 13:14 | PROVIDERS: ATTEND Family Medicine Addiction Medicine | DX: Z12.31 Encounter for screening mammogram for malignant neoplasm of breast (principal); N64.4 Mastodynia ==

== ENCOUNTER → 2023-06-02 | Outpatient (CLI) | payer MEDICARE, MEDICAID ==
[~2023-06-02] MED LIST changes: -GABA-283 PO; +GABA-284 PO
[2023-06-02 15:15] LABS: HEMOGLOBIN A1c 7.7 % (4.0-6.0)
[2023-06-04 15:08] LABS: IgG P18 AB Absent (.); IgG P23 AB Absent (.); IgG P28 AB Absent (.); IgG P30 AB Absent (.); IgG P39 AB Absent (.); IgG P41 AB Absent (.); IgG P45 AB Absent (.); IgG P66 AB Absent (.); IgG P93 AB Absent (.); IgM P23 AB Absent (.); IgM P39 AB Absent (.); IgM P41 AB Absent (.); LYME IgG WB INTERPRETATION Negative (.); LYME IgM WB INTERPRETATION Negative (.)
== END ==
LOC: M LAB 14:22
PROVIDERS: ATTEND Family Medicine Addiction Medicine
DX: M25.50 Pain in unspecified joint (principal); E11.9 Type 2 diabetes mellitus without complications

== ENCOUNTER → 2023-08-10 | Outpatient (CLI) | payer MEDICARE, MEDICAID | LOC: M SLEEP 20:00 | PROVIDERS: ATTEND Nurse Practitioner Family | DX: G47.33 Obstructive sleep apnea (adult) (pediatric) (principal); R40.0 Somnolence ==

== ENCOUNTER 2023-10-13 06:11 | Day surgery (SDC) | payer MEDICARE, MEDICAID ==
[~2023-10-13] VITALS: Ht 162.6 cm; Wt 88.9 kg
[~2023-10-13 06:11] MED LIST changes: +CLIN1GEL55; +CLOB60OI5; +CYAN-1 PO; +HYDR2.5C54; +LEVOTAB10 PO; +NITR2OI; +PSYL368P9 PO; +SEMA0.257; +TACROLIMUS; +VITA100T29 PO; +[UNRECOGNIZED DRUG - OTHER]; +[UNRECOGNIZED DRUG - OTHER]; +[UNRECOGNIZED DRUG - REMARK]; +[UNRECOGNIZED DRUG - REMARK]
[2023-10-13] MEDS ORDERED: LR 1,000 ML IV SCH (06:55)
[2023-10-13] MEDS ORDERED: MIDAZOLAM INJ 2MG/2ML VIAL As Ordered ONE (07:09)
[2023-10-13] MEDS ORDERED: fentaNYL 100 MCG/2 ML INJECTION As Ordered ONE (07:09)
[2023-10-13] MEDS ORDERED: LIDOCAINE 2% 100MG/5ML SDV (FOR ANES.) As Ordered ONE (07:10)
[2023-10-13] MEDS ORDERED: GLUCOSE 4GM CHEW TABLET PO PRN ×2 (07:10→07:15)
[2023-10-13] MEDS ORDERED: DEXTROSE 50% 50ML SYRINGE IV PRN ×2 (07:10→07:15)
[2023-10-13] MEDS ORDERED: propofoL 200 MG/20 ML VIAL As Ordered ONE (07:10)
[2023-10-13] MEDS ORDERED: GLUCAGON INJ 1MG VIAL SC PRN ×2 (07:10→07:15)
[2023-10-13] MEDS ORDERED: propofoL 500 MG/50 ML VIAL As Ordered ONE (07:11)
[2023-10-13] MEDS: ceFAZolin SOD 2 GM in IV 1 EA IV ONE (07:11)
[2023-10-13] MEDS: CelecoXIB 400 MG CAP PO ONE (07:11)
[2023-10-13] MEDS ORDERED: ONDANSETRON 4MG 2ML VIAL As Ordered ONE (07:11)
[2023-10-13] MEDS: INSULIN LISPRO (NovoLOG) PER UNIT SC PRN (07:21)
[2023-10-13] MEDS ORDERED: ROCURONIUM BROMIDE 50MG/5ML VIAL As Ordered ONE (07:25)
[2023-10-13] MEDS: metroNIDAZOLE 500 MG in IV 1 EA IV SCH (08:02)
[2023-10-13] MEDS ORDERED: GLYCOPYRROLATE INJ 0.2 MG/ML 2 ML VIAL As Ordered ONE (08:07)
[2023-10-13] MEDS ORDERED: ACETAMINOPHEN 1000MG 100ML IV BAG As Ordered ONE (08:08)
[2023-10-13] MEDS ORDERED: SUGAMMADEX SODIUM 500 MG/5 ML VIAL (BRIDION) As Ordered ONE (08:51)
[2023-10-13] MEDS ORDERED: ePHEDrine SULFATE 25 MG/5 ML(5MG/ML) SYRINGE As Ordered ONE (08:56)
[2023-10-13] MEDS ORDERED: fentaNYL 100 MCG/2 ML INJECTION IV PRN (09:05)
[2023-10-13] MEDS ORDERED: ONDANSETRON 4MG 2ML VIAL IV PRN (09:05)
[2023-10-13] MEDS ORDERED: oxyCODONE 5MG TAB PO PRN (09:05)
[2023-10-13] MEDS ORDERED: NORCO, ANEXSIA 5/325MG TABLET (HYDROcodone/ACETAMINOPHEN) PO PRN ×2 (09:45)
[2023-10-13 11:36] VITALS: BP 130/60; TEMP 97.5; O2SAT 96
[2023-10-13] MEDS ORDERED: KETOROLAC 30 MG/ML 1ML VIAL IV SCH (12:00)
== END 2023-10-13 11:40 | disposition home or self-care (01) ==
LOC: M SDC 06:11
PROVIDERS: ATTEND Surgery
DX: K64.8 Other hemorrhoids (principal); K64.4 Residual hemorrhoidal skin tags; E11.9 Type 2 diabetes mellitus without complications; G47.30 Sleep apnea, unspecified; Z91.041 Radiographic dye allergy status; Z88.1 Allergy status to other antibiotic agents; Z79.899 Other long term (current) drug therapy
CPT/HCPCS: 46260; 88304; 93005; C9290; J0131; J0665; J0690; J1100; J1815; J1836; J2250; J2405; J3010

== ENCOUNTER → 2023-12-03 | Outpatient (CLI) | payer MEDICARE, MEDICAID | LOC: M SLEEP 20:00 | PROVIDERS: ATTEND Nurse Practitioner Family | DX: G47.33 Obstructive sleep apnea (adult) (pediatric) (principal) ==

== ENCOUNTER → 2023-12-12 | Outpatient (CLI) | payer MEDICARE, MEDICAID ==
[2023-12-12 12:01] LABS: FOLATE > 24.0 NG/ML (>5.4); VITAMIN B12 LEVEL 1188 PG/ML (211-911)
== END ==
LOC: M LAB 10:47
PROVIDERS: ATTEND Psychiatry & Neurology Neurology
DX: G62.9 Polyneuropathy, unspecified (principal)

== ENCOUNTER → 2023-12-12 | Outpatient (CLI) | payer MEDICARE, MEDICAID ==
[2023-12-12 12:50] LABS: BASO % 0.2 % (0.0-1.0); EOS # 0.1 10^3/uL (0.0-0.5); EOS % 1.6 % (0.0-3.0); HEMATOCRIT 38.5 % (36.0-47.0); HEMOGLOBIN 12.4 g/dl (12.0-15.5); LYMPH # 1.9 10^3/uL (1.5-5.0); LYMPH % 23.7 % (24.0-44.0); MEAN CORPUSCULAR HEMOGLOBIN 29.7 pg (27.0-33.0); MEAN CORPUSCULAR HGB CONC 32.2 g/dl (32.0-36.5); MEAN CORPUSCULAR VOLUME 92.3 fl (80.0-96.0); MONO # 0.7 10^3/uL (0.0-0.8); MONO % 8.1 % (2.0-8.0); NEUTROPHILS # 5.3 10^3/uL (1.5-8.5); NEUTROPHILS % 65.2 % (36.0-66.0); PLATELET COUNT, AUTOMATED 355 10^3/uL (150-450); RED BLOOD COUNT 4.17 10^6/uL (4.00-5.40); WHITE BLOOD COUNT 8.2 10^3/uL (4.0-10.0)
[2023-12-12 13:13] LABS: LIPASE 47 U/L (12-53)
[2023-12-12 13:15] LABS: ALBUMIN 2.8 G/DL (3.2-5.2); ALKALINE PHOSPHATASE 145 U/L (46-116); ALT/SGPT 88 U/L (7.0-40); AMYLASE 79 U/L (30-118); AST/SGOT 58 U/L (<34); BILIRUBIN,TOTAL 0.2 MG/DL (0.3-1.2); BLOOD UREA NITROGEN 16 MG/DL (9-23); CARBON DIOXIDE LEVEL 27 MMOL/L (20-31); CHLORIDE LEVEL 105 MMOL/L (98-107); CREATININE FOR GFR 0.86 MG/DL (0.55-1.30); GLOMERULAR FILTRATION RATE > 60.0 (>45); GLUCOSE, FASTING 233 MG/DL (74-106); SODIUM LEVEL 138 MMOL/L (136-145); TOTAL PROTEIN 6.2 G/DL (5.7-8.2)
== END ==
LOC: M LAB 10:46
PROVIDERS: ATTEND Physician Assistant Medical
DX: R10.10 Upper abdominal pain, unspecified (principal)

== ENCOUNTER → 2023-12-25 | Outpatient (CLI) | payer MEDICARE, MEDICAID | LOC: M RAD 08:20 | PROVIDERS: ATTEND Physician Assistant Medical | DX: R10.9 Unspecified abdominal pain (principal) ==

== ENCOUNTER → 2024-01-14 | Outpatient (CLI) | payer MEDICARE, MEDICAID ==
[~2024-01-14] MED LIST changes: +CRAN500C11 PO; -CVS500CA5 PO
== END ==
LOC: M EKG 10:01
PROVIDERS: ATTEND Internal Medicine Cardiovascular Disease
DX: R00.2 Palpitations (principal); I44.0 Atrioventricular block, first degree

== ENCOUNTER → 2024-01-17 | Outpatient (CLI) | payer MEDICARE, MEDICAID ==
[2024-01-17 11:39] LABS: ALBUMIN 2.8 G/DL (3.2-5.2); CREATININE FOR GFR 1.01 MG/DL (0.55-1.30); GLOMERULAR FILTRATION RATE 59.3 (>45); MAGNESIUM LEVEL 1.4 MG/DL (1.8-2.4); PHOSPHORUS LEVEL 3.2 MG/DL (2.4-5.1); POTASSIUM SERUM 3.7 MMOL/L (3.5-5.1)
== END ==
LOC: M LAB 10:50
PROVIDERS: ATTEND Internal Medicine Cardiovascular Disease
DX: R06.02 Shortness of breath (principal)

== ENCOUNTER → 2024-01-19 | Outpatient (CLI) | payer MEDICARE, MEDICAID | LOC: M PLAIMG 10:33 | PROVIDERS: ATTEND Internal Medicine Cardiovascular Disease | DX: R06.02 Shortness of breath (principal) ==

== ENCOUNTER → 2024-01-26 | Outpatient (REF) | payer MEDICARE, MEDICAID ==
[2024-01-26 13:53] LABS: HEMOGLOBIN A1c 9.6 % (4.0-6.0)
[2024-01-26 14:01] LABS: ALBUMIN 2.9 G/DL (3.2-5.2); BILIRUBIN,TOTAL 0.2 MG/DL (0.3-1.2); CALCIUM LEVEL 9.6 MG/DL (8.3-10.6); CHOLESTEROL RISK RATIO 3.42 (<5); CREATININE FOR GFR 1.13 MG/DL (0.55-1.30); GLOMERULAR FILTRATION RATE 52.1 (>45); HDL CHOLESTEROL 47.3 MG/DL (>40); LDL CHOLESTEROL 66.5 MG/DL (<100); NON-HDL-C 114.7 MG/DL; POTASSIUM SERUM 4.4 MMOL/L (3.5-5.1); TOTAL PROTEIN 6.1 G/DL (5.7-8.2)
== END ==
LOC: M LAB REF 12:49
PROVIDERS: ATTEND Family Medicine Addiction Medicine
DX: E11.9 Type 2 diabetes mellitus without complications (principal)

== ENCOUNTER → 2024-01-31 | Outpatient (CLI) | payer MEDICARE, MEDICAID ==
[2024-01-31 13:33] LABS: ALBUMIN 2.9 G/DL (3.2-5.2); CALCIUM LEVEL 10.9 MG/DL (8.3-10.6); CREATININE FOR GFR 1.01 MG/DL (0.55-1.30); GLOMERULAR FILTRATION RATE 59.3 (>45); MAGNESIUM LEVEL 1.4 MG/DL (1.8-2.4); PHOSPHORUS LEVEL 3.7 MG/DL (2.4-5.1); POTASSIUM SERUM 4.4 MMOL/L (3.5-5.1)
== END ==
LOC: M LAB 11:58
PROVIDERS: ATTEND Internal Medicine Cardiovascular Disease
DX: I11.0 Hypertensive heart disease with heart failure (principal); E83.42 Hypomagnesemia; I50.32 Chronic diastolic (congestive) heart failure

== ENCOUNTER → 2024-02-02 | Outpatient (CLI) | payer MEDICARE, MEDICAID | LOC: M RAD 12:53 | PROVIDERS: ATTEND Internal Medicine Cardiovascular Disease | DX: R09.89 Other specified symptoms and signs involving the circulatory and respiratory systems (principal) ==

== ENCOUNTER → 2024-02-20 | Outpatient (CLI) | payer MEDICARE, MEDICAID ==
[2024-02-20 17:35] LABS: ALBUMIN 2.8 G/DL (3.2-5.2); ALKALINE PHOSPHATASE 87 U/L (46-116); ALT/SGPT 61 U/L (7.0-40); AST/SGOT 29 U/L (<34); BILIRUBIN,DIRECT < 0.1 MG/DL (<0.4); BILIRUBIN,TOTAL 0.2 MG/DL (0.3-1.2); IRON (FE) 55 UG/DL (50-170); PERCENT SATURATION 17.5 % (13.2-45.0); TOTAL IRON BINDING CAPACITY 314 UG/DL (250-425); TOTAL PROTEIN 5.9 G/DL (5.7-8.2)
[2024-02-20 17:38] LABS: FERRITIN 58.2 NG/ML (7.3-270.7)
[2024-02-20 17:54] LABS: HEPATITIS B SURFACE ANTIGEN NEGATIVE (NEGATIVE)
[2024-02-20 18:16] LABS: HEPATITIS B CORE ANTIBODY IGM NEGATIVE (NEGATIVE); HEPATITIS C VIRUS ABY INDEX < 0.02 INDEX (<0.8)
[2024-02-22 10:57] LABS: ANA SCREEN, IFA NEGATIVE (NEGATIVE)
[2024-02-22 19:13] LABS: ANTI-MITOCHONDRIAL ANTIBODY NEGATIVE (NEGATIVE)
[2024-02-24 21:37] LABS: ANCA SCREEN Negative (Negative)
[2024-02-26 15:47] LABS: LIVER-KIDNEY MICROSOMAL ABY <= 20.0 U (<=20.0)
== END ==
LOC: M LRY 14:07
PROVIDERS: ATTEND Physician Assistant Medical
DX: R74.01 Elevation of levels of liver transaminase levels (principal)

== ENCOUNTER → 2024-04-01 | Outpatient (CLI) | payer MEDICARE, MEDICAID | LOC: M RAD 06:59 | PROVIDERS: ATTEND Physician Assistant Medical | DX: R74.01 Elevation of levels of liver transaminase levels (principal) ==

== ENCOUNTER → 2024-04-10 | Outpatient (REF) | payer MEDICARE, MEDICAID | LOC: M SFHCWAGY 16:50 | PROVIDERS: ATTEND Nurse Practitioner Family | DX: R21 Rash and other nonspecific skin eruption (principal); Z11.3 Encounter for screening for infections with a predominantly sexual mode of transmission; N89.8 Other specified noninflammatory disorders of vagina ==

== ENCOUNTER → 2024-04-26 | Outpatient (REF) | payer MEDICARE, MEDICAID ==
[2024-04-26 18:06] LABS: CALCIUM LEVEL 9.6 MG/DL (8.3-10.6); CREATININE FOR GFR 1.07 MG/DL (0.55-1.30); GLOMERULAR FILTRATION RATE 55.5 (>45); MAGNESIUM LEVEL 1.3 MG/DL (1.8-2.4); POTASSIUM SERUM 4.5 MMOL/L (3.5-5.1)
== END ==
LOC: M LAB REF 16:17
PROVIDERS: ATTEND Family Medicine Addiction Medicine
DX: E83.42 Hypomagnesemia (principal)

== ENCOUNTER → 2024-05-03 | Outpatient (CLI) | payer MEDICARE, MEDICAID ==
[2024-05-03 15:55] LABS: ALBUMIN 3.4 G/DL (3.2-5.2); BLOOD UREA NITROGEN 16 MG/DL (9-23); CALCIUM LEVEL 10.6 MG/DL (8.3-10.6); CARBON DIOXIDE LEVEL 28 MMOL/L (20-31); CHLORIDE LEVEL 103 MMOL/L (98-107); CREATININE FOR GFR 0.98 MG/DL (0.55-1.30); GLOMERULAR FILTRATION RATE > 60.0 (>45); GLUCOSE, FASTING 258 MG/DL (74-106); MAGNESIUM LEVEL 0.9 MG/DL (1.8-2.4); PHOSPHORUS LEVEL 2.9 MG/DL (2.4-5.1); POTASSIUM SERUM 3.9 MMOL/L (3.5-5.1); SODIUM LEVEL 136 MMOL/L (136-145)
== END ==
LOC: M LAB 14:48
PROVIDERS: ATTEND Internal Medicine Cardiovascular Disease
DX: E83.52 Hypercalcemia (principal); E83.42 Hypomagnesemia

== ENCOUNTER → 2024-05-06 | Outpatient (CLI) | payer MEDICARE, MEDICAID | LOC: M LAB 09:47 | PROVIDERS: ATTEND Internal Medicine Cardiovascular Disease | DX: E83.42 Hypomagnesemia (principal) ==

== ENCOUNTER → 2024-05-13 | Outpatient (CLI) | payer MEDICARE, MEDICAID | LOC: M LAB 12:32 | PROVIDERS: ATTEND Family Medicine Addiction Medicine | DX: E83.42 Hypomagnesemia (principal) ==

== ENCOUNTER → 2024-06-07 | Outpatient (REF) | payer MEDICARE, MEDICAID ==
[~2024-06-07] MED LIST changes: -CRAN500C11 PO; +CVS500CA5 PO; +GABA-1172 PO; -GABA-282 PO
[2024-06-13 14:42] LABS: HPV APTIMA Not Detected (Not Detected)
== END ==
LOC: M SFHCWAGY 10:58
PROVIDERS: ATTEND Nurse Practitioner Family
DX: Z12.72 Encounter for screening for malignant neoplasm of vagina (principal)
CPT/HCPCS: 87624; G0123

== ENCOUNTER → 2024-06-18 | Outpatient (CLI) | payer MEDICAID, MEDICARE | LOC: M CARPUL 12:33 | PROVIDERS: ATTEND Internal Medicine Cardiovascular Disease | DX: R07.2 Precordial pain (principal) ==

== ENCOUNTER → 2024-08-27 | Outpatient (CLI) | payer MEDICARE, MEDICAID ==
[2024-08-27 14:49] LABS: HEMATOCRIT 38.1 % (36.0-47.0); HEMOGLOBIN 12.2 g/dl (12.0-15.5); MEAN CORPUSCULAR VOLUME 93.8 fl (80.0-96.0); PLATELET COUNT, AUTOMATED 407 10^3/uL (150-450); RED BLOOD COUNT 4.06 10^6/uL (4.00-5.40)
[2024-08-27 15:22] LABS: ALBUMIN 2.9 G/DL (3.2-5.2); ALKALINE PHOSPHATASE 85 U/L (35-104); ALT/SGPT 49 U/L (7.0-40); AST/SGOT 44 U/L (<34); BILIRUBIN,TOTAL 0.3 MG/DL (0.3-1.2); BLOOD UREA NITROGEN 15 MG/DL (9-23); CALCIUM LEVEL 10.2 MG/DL (8.3-10.6); CARBON DIOXIDE LEVEL 27 MMOL/L (20-31); CHLORIDE LEVEL 105 MMOL/L (98-107); CREATININE FOR GFR 0.98 MG/DL (0.55-1.30); GLOMERULAR FILTRATION RATE > 60.0 (>45); GLUCOSE, FASTING 189 MG/DL (74-106); MAGNESIUM LEVEL 1.3 MG/DL (1.8-2.4); POTASSIUM SERUM 5.1 MMOL/L (3.5-5.1); SODIUM LEVEL 141 MMOL/L (136-145); TOTAL PROTEIN 6.6 G/DL (5.7-8.2)
== END ==
LOC: M LAB 13:53
PROVIDERS: ATTEND Internal Medicine Cardiovascular Disease
DX: G47.33 Obstructive sleep apnea (adult) (pediatric) (principal); E78.00 Pure hypercholesterolemia, unspecified; I11.0 Hypertensive heart disease with heart failure; E83.42 Hypomagnesemia; I50.32 Chronic diastolic (congestive) heart failure

== ENCOUNTER → 2024-10-02 | Outpatient (CLI) | payer MEDICARE, MEDICAID | LOC: M RAD 14:03 | PROVIDERS: ATTEND Family Medicine Addiction Medicine | DX: Z87.891 Personal history of nicotine dependence (principal) ==

== ENCOUNTER → 2024-10-09 | Outpatient (CLI) | payer MEDICARE, MEDICAID | LOC: M LAB 10:52 | PROVIDERS: ATTEND Physician Assistant | DX: E83.42 Hypomagnesemia (principal) ==

== ENCOUNTER → 2024-10-28 | Outpatient (CLI) | payer MEDICARE, MEDICAID | LOC: M LAB 15:24 | PROVIDERS: ATTEND Physician Assistant | DX: E83.42 Hypomagnesemia (principal) ==

== ENCOUNTER → 2024-11-07 | Outpatient (CLI) | payer MEDICARE, MEDICAID ==
[2024-11-07 12:14] LABS: ALBUMIN 3.5 G/DL (3.2-5.2); BILIRUBIN,TOTAL 0.3 MG/DL (0.3-1.2); CALCIUM LEVEL 9.9 MG/DL (8.3-10.6); CREATININE FOR GFR 1.18 MG/DL (0.55-1.30); GLOMERULAR FILTRATION RATE 49.6 (>45); MAGNESIUM LEVEL 1.5 MG/DL (1.8-2.4); POTASSIUM SERUM 4.6 MMOL/L (3.5-5.1); TOTAL PROTEIN 7.2 G/DL (5.7-8.2)
== END ==
LOC: M LAB 10:18
PROVIDERS: ATTEND Family Medicine Addiction Medicine
DX: I11.0 Hypertensive heart disease with heart failure (principal); I50.32 Chronic diastolic (congestive) heart failure

== ENCOUNTER → 2024-11-22 | Outpatient (CLI) | payer MEDICARE, MEDICAID ==
[2024-11-22 11:47] LABS: ALBUMIN 3.4 G/DL (3.2-5.2); BILIRUBIN,TOTAL 0.3 MG/DL (0.3-1.2); CALCIUM LEVEL 9.8 MG/DL (8.3-10.6); CREATININE FOR GFR 1.15 MG/DL (0.55-1.30); GLOMERULAR FILTRATION RATE 51.1 (>45); POTASSIUM SERUM 4.5 MMOL/L (3.5-5.1); TOTAL PROTEIN 6.9 G/DL (5.7-8.2)
== END ==
LOC: M LAB 10:23
PROVIDERS: ATTEND Physician Assistant
DX: I11.0 Hypertensive heart disease with heart failure (principal); I50.32 Chronic diastolic (congestive) heart failure

== ENCOUNTER → 2025-04-11 | Outpatient (CLI) | payer MEDICARE, MEDICAID | LOC: M RAD 15:32 | PROVIDERS: ATTEND Internal Medicine Nephrology | DX: N18.31 Chronic kidney disease, stage 3a (principal); N28.89 Other specified disorders of kidney and ureter ==

== ENCOUNTER → 2025-04-29 | Outpatient (CLI) | payer MEDICARE, MEDICAID ==
[~2025-04-29] MED LIST changes: +ERGO125013 PO; -VITA500045 PO
== END ==
LOC: M PLAIMG 11:28
PROVIDERS: ATTEND Internal Medicine Nephrology
DX: D41.02 Neoplasm of uncertain behavior of left kidney (principal); R93.3 Abnormal findings on diagnostic imaging of other parts of digestive tract

== ENCOUNTER → 2025-05-06 | Outpatient (CLI) | payer MEDICARE, MEDICAID ==
[2025-05-06 13:18] LABS: ESTIMATED AVERAGE GLUCOSE 209.0 MG/DL (60-110)
== END ==
LOC: M LAB 11:55
PROVIDERS: ATTEND Physician Assistant
DX: G56.03 Carpal tunnel syndrome, bilateral upper limbs (principal)

== ENCOUNTER 2025-06-19 07:02 | Day surgery (SDC) | payer MEDICARE, MEDICAID ==
[~2025-06-19] VITALS: Ht 162.6 cm; Wt 80.6 kg
[2025-06-19] MEDS: LIDOCAINE 3.5% 1 ML OPHTH TOPICAL GEL OU ONE (06:00)
[2025-06-19] MEDS: OFLOXACIN 0.3 % (OCUFLOX) OPTH SOL 5ML OS ONE (06:00)
[~2025-06-19 07:02] MED LIST changes: +ALPH600C2 PO; +AMLO-751 PO; +ATEN50TA2 PO; +CVS-161 PO; +CYCL-707 PO; +ECOT81TA5 PO; +GABA-1490 PO; +HYDR2.5C21 PR; +IMIQ1CRE6 EX; +METR0.7526 TOP; +METRCRM EXT; +NOVOINJ SC; +OREG1CAP PO; +PHENYLEPHRINE 10% OPHTH SOL 5ML OS PRN; +SEMA1PEN2 SQ; +SPIR-10 PO; +SUPETAB44 PO; +[UNRECOGNIZED DRUG - OTHER]; -[UNRECOGNIZED DRUG - REMARK]; +[UNRECOGNIZED DRUG - REMARK] PO; +lispro SC; +lispro insulin SC
[2025-06-19] MEDS ORDERED: MIDAZOLAM INJ 2 MG/2 ML VIAL As Ordered ONE (07:24)
[2025-06-19] MEDS ORDERED: GLUCAGON INJ 1 MG VIAL SC PRN (08:20)
[2025-06-19] MEDS ORDERED: DEXTROSE 50% 50 ML SYRINGE IV PRN (08:20)
[2025-06-19] MEDS ORDERED: GLUCOSE 4 GM CHEW PO PRN (08:20)
[2025-06-19] MEDS: INSULIN LISPRO (NovoLOG) PER UNIT SC PRN (08:33)
[2025-06-19] MEDS: CEFUROXIME 1 MG/0.1 ML INTRACAMERAL INJ As Ordered ONE (08:46)
[2025-06-19] MEDS: BSS IRRIG/VANCO(10MG)/TOBRA(5MG)/EPINEPH(1:1000-0.5CC)500ML BAG-ORONLY As Ordered ONE (08:46)
[2025-06-19] MEDS: LIDOCAINE 1% SDV 5 ML VIAL As Ordered ONE (08:46)
[2025-06-19 08:58] VITALS: BP 113/76; TEMP 97.8; O2SAT 95
[2025-06-19] MEDS: PHENYLEPHRINE 2.5% OPHTH SOL 2ML OS SCH (10:33)
[2025-06-19] MEDS: TROPICAMIDE 1% OPHTH SOLN 15ML OS SCH (10:33)
[2025-06-19] MEDS: CYCLOPENTOLATE 1% OPHTH SOLN 2 ML BTL OS SCH (10:33)
== END 2025-06-19 09:31 | disposition home or self-care (01) ==
LOC: M SDC 07:02
PROVIDERS: ATTEND Ophthalmology
DX: E11.36 Type 2 diabetes mellitus with diabetic cataract (principal); H25.12 Age-related nuclear cataract, left eye; E78.00 Pure hypercholesterolemia, unspecified; I13.0 Hypertensive heart and chronic kidney disease with heart failure and stage 1 through stage 4 chronic kidney disease, or unspecified chronic kidney disease; I50.9 Heart failure, unspecified; N18.2 Chronic kidney disease, stage 2 (mild); J44.9 Chronic obstructive pulmonary disease, unspecified; E11.40 Type 2 diabetes mellitus with diabetic neuropathy, unspecified; Z79.899 Other long term (current) drug therapy; K76.0 Fatty (change of) liver, not elsewhere classified; G47.30 Sleep apnea, unspecified; Z79.85 Long-term (current) use of injectable non-insulin antidiabetic drugs; Z79.4 Long term (current) use of insulin; Z79.84 Long term (current) use of oral hypoglycemic drugs; Z90.710 Acquired absence of both cervix and uterus
CPT/HCPCS: 66984; J0697; J1815; J2250; J3010; V2632

== ENCOUNTER 2025-07-03 07:05 | Day surgery (SDC) | payer MEDICARE, MEDICAID ==
[~2025-07-03] VITALS: Ht 162.6 cm; Wt 82.6 kg
[~2025-07-03 07:05] MED LIST changes: +PHENYLEPHRINE 10% OPHTH SOL 5ML OD PRN; -PHENYLEPHRINE 10% OPHTH SOL 5ML OS PRN
[2025-07-03] MEDS ORDERED: MIDAZOLAM INJ 2 MG/2 ML VIAL As Ordered ONE (07:07)
[2025-07-03] MEDS: OFLOXACIN 0.3 % (OCUFLOX) OPTH SOL 5ML OD ONE (08:51)
[2025-07-03] MEDS: LIDOCAINE 3.5% 1 ML OPHTH TOPICAL GEL OU ONE (08:51)
[2025-07-03] MEDS: CYCLOPENTOLATE 1% OPHTH SOLN 2 ML BTL OD SCH (08:52)
[2025-07-03] MEDS: TROPICAMIDE 1% OPHTH SOLN 15ML OD SCH (08:52)
[2025-07-03] MEDS: PHENYLEPHRINE 2.5% OPHTH SOL 2ML OD SCH (08:52)
[2025-07-03] MEDS ORDERED: LR 1,000 ML IV SCH (09:05)
[2025-07-03] MEDS: LIDOCAINE 1% SDV 5 ML VIAL As Ordered ONE (10:38)
[2025-07-03] MEDS: CEFUROXIME 1 MG/0.1 ML INTRACAMERAL INJ As Ordered ONE (10:38)
[2025-07-03] MEDS: BSS IRRIG/VANCO(10MG)/TOBRA(5MG)/EPINEPH(1:1000-0.5CC)500ML BAG-ORONLY As Ordered ONE (10:38)
[2025-07-03 10:57] VITALS: BP 128/68; TEMP 96.9; O2SAT 98
== END 2025-07-03 11:23 | disposition home or self-care (01) ==
LOC: M SDC 07:05
PROVIDERS: ATTEND Ophthalmology
DX: E11.36 Type 2 diabetes mellitus with diabetic cataract (principal); H25.11 Age-related nuclear cataract, right eye; I13.0 Hypertensive heart and chronic kidney disease with heart failure and stage 1 through stage 4 chronic kidney disease, or unspecified chronic kidney disease; E11.22 Type 2 diabetes mellitus with diabetic chronic kidney disease; I50.9 Heart failure, unspecified; N18.2 Chronic kidney disease, stage 2 (mild); E11.40 Type 2 diabetes mellitus with diabetic neuropathy, unspecified; J44.9 Chronic obstructive pulmonary disease, unspecified; Z79.899 Other long term (current) drug therapy; Z79.82 Long term (current) use of aspirin; Z79.84 Long term (current) use of oral hypoglycemic drugs; Z79.4 Long term (current) use of insulin; Z79.85 Long-term (current) use of injectable non-insulin antidiabetic drugs; G47.30 Sleep apnea, unspecified; E78.00 Pure hypercholesterolemia, unspecified; K21.9 Gastro-esophageal reflux disease without esophagitis; F41.9 Anxiety disorder, unspecified; F32.A Depression, unspecified; Z88.1 Allergy status to other antibiotic agents; Z88.8 Allergy status to other drugs, medicaments and biological substances; Z91.041 Radiographic dye allergy status; Z91.048 Other nonmedicinal substance allergy status
CPT/HCPCS: 66984; J0697; J2250; V2632

== ENCOUNTER → 2025-08-08 | Outpatient (CLI) | payer MEDICARE, MEDICAID ==
[~2025-08-08] MED LIST changes: -PHENYLEPHRINE 10% OPHTH SOL 5ML OD PRN
== END ==
LOC: M WHC 07:33
PROVIDERS: ATTEND Physician Assistant
DX: Z12.31 Encounter for screening mammogram for malignant neoplasm of breast (principal); R92.323 Mammographic fibroglandular density, bilateral breasts

== ENCOUNTER → 2025-08-08 | Outpatient (REF) | payer MEDICARE, MEDICAID ==
[2025-08-12 13:02] LABS: HPV APTIMA Not Detected (Not Detected)
== END ==
LOC: M SFHCWAGY 10:26
PROVIDERS: ATTEND Physician Assistant
DX: Z01.419 Encounter for gynecological examination (general) (routine) without abnormal findings (principal)
CPT/HCPCS: 87624; G0123